=== PATIENT | male | born 1945 | race Caucasian/White ===

== ENCOUNTER 2020-08-29 10:19 | Outpatient (CLI) | payer MEDICARE, SELFPAY ==
--- NOTE | ~2020-08-29 | MR_ITS ---
EXAMINATION: MR cervical spine wo con DATE: 08/29/2020 11:52 INDICATION: Cervical disc disorder with myelopathy. TECHNIQUE: Magnetic resonance imaging (MRI) of the cervical spine was performed without intravenous c ontrast. Sequences included sagittal T2-weighted FSE, sagittal STIR FSE, sagittal T1-weighted FSE, ax ial MERGE, and axial T2-weighted FSE. COMPARISON: None FINDINGS: There is 3 degrees dextrocurvature of cervical spine. There is 3 mm anterolisthesis of C7 o n T1 and 2 mm retrolisthesis of C5 on C6 and C6 on C7. Vertebral body heights are normal. There is mi ldly decreased disc height at C3-C4, moderately decreased disc height at C4-C5, and severely decrease d disc height from C5-C6 through C7-T1. There is multifocal increased T2-weighted signal intensity in the spinal cord from C3-C4 through C7-T1, consistent with myelomalacia. The following disc levels ar e specifically discussed: C2-C3: The disc does not extend beyond the endplate margin. There is mild bilateral uncovertebral tri nt osteoarthritis. There is mild right and severe left facet joint osteoarthritis. There is mild bila teral neural foraminal stenosis. There is no central canal stenosis. C3-C4: The disc is bulging. There is mild bilateral uncovertebral joint osteoarthritis. There is mode rate right and severe left facet joint osteoarthritis. There is moderate bilateral neural foraminal s tenosis. There is moderate central canal stenosis with ventral and dorsal indentation of the spinal c ord. C4-C5: The disc is bulging. There is severe bilateral uncovertebral joint osteoarthritis. There is se roberto bilateral facet joint osteoarthritis. There is severe bilateral neural foraminal stenosis. There is mild central canal stenosis with ventral indentation of spinal cord. C5-C6: The disc is bulging and has an annular fissure. There is severe bilateral uncovertebral joint osteoarthritis. There is moderate bilateral facet joint osteoarthritis. There is severe bilateral abrahan ral foraminal stenosis. There is mild central canal stenosis with ventral indentation of spinal cord. C6-C7: The disc is bulging and has an annular fissure. There is severe bilateral uncovertebral joint osteoarthritis. There is severe bilateral facet joint osteoarthritis. There is severe bilateral neura l foraminal stenosis. There is moderate central canal stenosis with ventral and dorsal indentation of spinal cord. C7-T1: The disc is bulging. There is moderate bilateral uncovertebral joint osteoarthritis. There is severe bilateral facet joint osteoarthritis. There is moderate bilateral neural foraminal stenosis. T here is mild central canal stenosis. IMPRESSION: 1. Myelomalacia from C3-C4 through C7-T1. 2. Severe cervical spondylosis. Reviewed, dictated and finalized at location B. RAL SUPPLY TECH
--- NOTE | 2020-08-30 09:15 | WPDNEUROLOGY ---
Neurology EEG Report General Information Date of Study: 08/29/20 TEST eeg DIAGNOSIS Syncope and collapse CONDITION OF RECORDING awake drowsy and sleep EEG NUMBER [id number] CLINICAL HISTORY patient reported that he loss consciousness about a month ago. No problems ever since then. EEG DESCRIPTION Basic resting occipital frequency consists of low to medium voltage 8 to 10 hertz per 2nd alpha admixed with low-voltage to medium voltage 6 to 7 hertz per 2nd theta. Bilateral symmetrical sleep activity seen during sleep. Photic stimulation produced normal drive. Non paroxysmal. Nonfocal. Nonlateralizing. IMPRESSION Normal record
== END 2020-08-29 10:20 | disposition home or self-care (01) ==
PROVIDERS: Visit Provider Psychiatry & Neurology Neurology
DX: M47.13 Other spondylosis with myelopathy, cervicothoracic region (principal); M48.03 Spinal stenosis, cervicothoracic region; G95.89 Other specified diseases of spinal cord
CPT/HCPCS: 72141; 95816